=== PATIENT | female | born 1945 | race Caucasian/White ===

== ENCOUNTER 2017-04-01 08:51 | Outpatient (CLI) | payer MEDICARE, BC ==
--- NOTE | 2017-04-01 12:30 | MRI ---
MRI BRAIN WITH AND WITHOUT CONTRAST: Date: 04/01/17 HISTORY: 71-year-old female with D32.9, meningioma. COMPARISON: Currently none available. TECHNIQUE: Multiple sequences obtained in axial, sagittal, and coronal planes; pre and post IV injection of gado linium-based contrast agent: 14 mL MultiHance. FINDINGS: The ventricles are normal in size and configuration. There is no restricted diffusion, abnormal intr aaxial enhancement, mass, midline shift or any other mass effect, recent intraaxial hemorrhage, or ex traaxial fluid collection. There are a few scattered punctate T2-hyperintensities in the cerebral whi te matter consistent with mild chronic ischemic white matter changes due to mild microvascular athero sclerosis. There is a well circumscribed, approximately 1.2 x 1.2 x 1.6 cm extra-axial mass in the right paramed luisa frontal region, which has magnetic susceptibility on the gradient echo sequence, is heterogeneous ly hyperintense on the precontrast T1 WI and FLAIR sequence, and of moderate to high signal intensity on the T2 WI. Because of the adjacent diffuse brain mild parenchymal volume loss (typical for this a ge group), there is no mass effect upon the adjacent frontal cortex. There is enhancement of portions of this lesion (as seen when side by side comparison is made with the precontrast T1 WI axial sequen ce and the slightly delayed postcontrast T1 axial sequence). IMPRESSION: 1. Mild chronic ischemic white matter changes. 2. Otherwise normal brain. 3. Incidental finding of a small, 1.6 cm right paramedian upper-mid frontal meningioma, which does n ot cause mass effect or edema in the adjacent brain parenchyma. [place] POS: [facility]
== END 2017-04-01 08:52 | disposition home or self-care (01) ==
LOC: SCSMRI 08:51
PROVIDERS: ATTEND Family Medicine
DX: D32.9 Benign neoplasm of meninges, unspecified (principal)
CPT/HCPCS: 70553

== ENCOUNTER 2018-02-10 08:16 | Outpatient (CLI) | payer MEDICARE, BC ==
--- NOTE | 2018-02-10 11:45 | RAD ---
AIR CONTRAST BARIUM ENEMA: HISTORY: Rectal bleeding. RADIATIO DOSIMETRY: 5.7 minutes of fluoroscopy. DAP 98 Gy per cm2. TECHNIQUE: Informed consent was obtained from the patient. A balloon-tipped catheter was placed into the rectum . Air and barium were introduced. Spot and overhead images were obtained. FINDINGS: The images demonstrate a tortuous sigmoid colon with numerous sigmoid colonic diverticula. There is no definite evidence of obstruction. The rest of the colon fills without difficulty. No definite ev idence of mucosal lesions seen. IMPRESSION: 1. Sigmoid colonic diverticulosis. 2. No definite evidence of other masses or lesions seen. POS: [facility]
== END 2018-02-10 08:17 | disposition home or self-care (01) ==
LOC: RAD 08:16
PROVIDERS: ATTEND Family Medicine
DX: K62.5 Hemorrhage of anus and rectum (principal); K57.30 Diverticulosis of large intestine without perforation or abscess without bleeding
CPT/HCPCS: 74280

== ENCOUNTER 2018-11-17 08:57 | Outpatient (CLI) | payer MEDICARE, BC ==
--- NOTE | 2018-11-17 09:40 | RAD ---
RIGHT SHOULDER 3 VIEWS: HISTORY: Pain. COMPARISON: None. FINDINGS: Glenohumeral joint space is preserved. No fracture or dislocation. There are degenerative changes of the acromioclavicular joint space. IMPRESSION: 1. No fracture or dislocation. 2. Degenerative changes in the acromioclavicular joint space. Transcribed Date/Time: 11/17/2018 11:08 AM
== END 2018-11-17 08:58 | disposition home or self-care (01) ==
LOC: SCSRAD 08:57
PROVIDERS: ATTEND Family Medicine
DX: M25.511 Pain in right shoulder (principal); M19.011 Primary osteoarthritis, right shoulder

== ENCOUNTER 2019-01-10 10:34 | Outpatient (CLI) | payer MEDICARE, BC ==
--- NOTE | 2019-01-10 11:20 | ULT ---
EXAM: Left lower extremity venous duplex ultrasound with color and spectral Doppler imaging: HISTORY: Calf swelling and edema COMPARISON: None FINDINGS: Exam performed from the groin to the ankle including the visualized greater saphenous, common femoral , superficial femoral, profunda femoral, popliteal, trifurcation, and posterior tibial veins. There is phasic flow with normal compressibility and normal augmentation at all examined levels. No evidence for intraluminal thrombus. IMPRESSION: No evidence for deep venous thrombosis.
--- NOTE | 2019-01-10 11:23 | RAD ---
EXAM: Left knee 3 views: HISTORY: Left knee pain following a fall and injury 2 weeks ago COMPARISON: None FINDINGS: Bony demineralization. Degenerative changes. No acute fracture or dislocation or other significant acute osseous abnormality. IMPRESSION: No significant acute process.
--- NOTE | 2019-01-10 11:25 | RAD ---
EXAM: Left ankle 3 views: HISTORY: Left leg pain following injury from a fall several weeks ago COMPARISON: None FINDINGS: Bony demineralization. Minimal thickening of the upper mid Achilles tendon, possibly tendinopathy. Degenerative changes. No acute fracture or dislocation or other significant acute osseous abnormality. IMPRESSION: No significant acute process.
== END 2019-01-10 10:35 | disposition home or self-care (01) ==
LOC: SCSULT 10:34
PROVIDERS: ATTEND Family Medicine
DX: M79.89 Other specified soft tissue disorders (principal)
CPT/HCPCS: 36415; 85379